=== PATIENT | male | born 1935 | race Caucasian/White ===

== ENCOUNTER 2022-01-03 16:35 | Emergency (ER) | payer MEDICARE ==
[2022-01-03] MEDS ORDERED: Sodium Chloride 0.9% 10 ML Syringe FLUSH PRN (17:00)
[2022-01-03 17:45] LABS: CORONAVIRUS COVID-19 NAA NEGATIVE (NEGATIVE)
[2022-01-03 18:20] LABS: ESTIMATED GFR > 60 mL/min (>60)
== END 2022-01-03 19:20 | disposition home or self-care (01) ==
LOC: JD.ED 16:35
DX: J06.9 Acute upper respiratory infection, unspecified (principal); I10 Essential (primary) hypertension; Z79.82 Long term (current) use of aspirin; Z79.899 Other long term (current) drug therapy; Z28.310 Unvaccinated for COVID-19; Z95.1 Presence of aortocoronary bypass graft; Z20.822 Contact with and (suspected) exposure to COVID-19
CPT/HCPCS: 0240U; 36415; 71045; 80053; 81001; 85025; 86140; 99283